=== PATIENT | female | born 1935 | race Caucasian/White ===

== ENCOUNTER 2021-12-20 15:08 | Emergency (ER) | payer MEDICARE, OTHER ==
[~2021-12-20] VITALS: Ht 149.9 cm; Wt 44.6 kg
[2021-12-20 16:05] LABS: URINE WBC 0 /hpf (0-3)
[2021-12-20 16:08] LABS: BASO # 0.06 K/mm3 (0.02-0.10); EOS # 0.11 K/mm3 (0.04-0.40); EOS % 1.1 % (1.0-5.0); HEMATOCRIT 41.5 % (37.0-47.0); HEMOGLOBIN 13.4 g/dL (12.5-16.0); LYMPH# 2.22 K/mm3 (1.50-4.00); MEAN CELL VOLUME 102 fl (78-100); MEAN CORPUSCULAR HEMOGLOBIN 33 pg (27-31); MEAN CORPUSCULAR HGB CONC 32 g/dL (33-37); MEAN PLATELET VOLUME 8.9 fl (7.4-10.4); MONO # 0.96 K/mm3 (0.20-0.80); NEU # 6.63 K/mm3 (1.40-6.50); PLATELET COUNT 252 K/mm3 (130-400); RED BLOOD COUNT 4.09 M/mm3 (4.10-5.30); RED CELL DISTRIBUTION WIDTH 12.8 % (11.5-14.5); WHITE BLOOD COUNT 10.1 K/mm3 (4.8-10.8)
[2021-12-20 16:19] LABS: PH-URINE 7.5 (5.0 - 8.0); URINE APPEARANCE CLEAR; URINE BILIRUBIN NEGATIVE (NEGATIVE); URINE BLOOD TRACE (NEGATIVE); URINE COLOR YELLOW; URINE GLUCOSE NEGATIVE (NEGATIVE); URINE KETONE NEGATIVE (NEGATIVE); URINE LEUKOCYTE ESTERASE NEGATIVE (NEGATIVE); URINE NITRATE NEGATIVE (NEGATIVE); URINE PROTEIN(semi-quant) 1+ (NEGATIVE); URINE UROBILINOGEN NORMAL (NORMAL)
[2021-12-20 16:19] LABS: ALBUMIN 4.3 g/dL (3.4-4.8)
[2021-12-20 16:20] LABS: POTASSIUM 3.3 mmol/L (3.5-5.1)
[2021-12-20 16:21] LABS: CALCIUM 9.8 mg/dL (8.3-10.5)
[2021-12-20 16:22] LABS: TOTAL PROTEIN 7.6 g/dL (6.2-8.1)
[2021-12-20 16:24] LABS: TOTAL BILIRUBIN 0.2 mg/dL (0.2-1.2)
[2021-12-20] MEDS ORDERED: ACETAMINOPHEN500 M7 PO (16:36)
[2021-12-20] MEDS ORDERED: ARICEPT5 M1 PO (16:37)
[2021-12-20] MEDS ORDERED: CALTRATE 600 +1 TAB PO (16:37)
[2021-12-20] MEDS ORDERED: ZESTRIL10 M1 PO (16:37)
[2021-12-20] MEDS ORDERED: REFRESH CELLUVI1 SOL OU (16:39)
[2021-12-20] MEDS ORDERED: ACETAMINOPHEN500 M5 PO (16:41)
[2021-12-20 17:56] VITALS: BP 164/78
== END 2021-12-20 17:55 | disposition home or self-care (01) ==
LOC: ED 15:08
PROVIDERS: Nurse Practitioner Family
DX: R10.84 Generalized abdominal pain (principal)

== ENCOUNTER → 2022-01-01 | Outpatient (CLI) | payer MEDICARE, OTHER ==
[~2022-01-01] MED LIST: ACETAMINOPHEN500 M5 PO; ACETAMINOPHEN500 M7 PO; ARICEPT5 M1 PO; CALTRATE 600 +1 TAB PO; REFRESH CELLUVI1 SOL OU; ZESTRIL10 M1 PO
[2022-01-01 11:59] LABS: BASO # 0.07 K/mm3 (0.02-0.10); EOS # 0.07 K/mm3 (0.04-0.40); EOS % 0.6 % (1.0-5.0); HEMATOCRIT 39.5 % (37.0-47.0); HEMOGLOBIN 12.7 g/dL (12.5-16.0); LYMPH# 1.92 K/mm3 (1.50-4.00); MEAN CELL VOLUME 102 fl (78-100); MEAN CORPUSCULAR HEMOGLOBIN 33 pg (27-31); MEAN CORPUSCULAR HGB CONC 32 g/dL (33-37); MEAN PLATELET VOLUME 8.9 fl (7.4-10.4); MONO # 0.88 K/mm3 (0.20-0.80); NEU # 8.25 K/mm3 (1.40-6.50); PLATELET COUNT 257 K/mm3 (130-400); RED BLOOD COUNT 3.88 M/mm3 (4.10-5.30); WHITE BLOOD COUNT 11.2 K/mm3 (4.8-10.8)
[2022-01-01 12:08] LABS: ALBUMIN 4.3 g/dL (3.4-4.8)
[2022-01-01 12:09] LABS: CALCIUM 9.8 mg/dL (8.3-10.5)
[2022-01-01 12:11] LABS: TOTAL PROTEIN 7.4 g/dL (6.2-8.1)
[2022-01-01 12:12] LABS: TOTAL BILIRUBIN 0.4 mg/dL (0.2-1.2)
== END ==
LOC: LAB 11:34
PROVIDERS: Physician Assistant
DX: Z00.00 Encounter for general adult medical examination without abnormal findings (principal); M81.0 Age-related osteoporosis without current pathological fracture; G30.9 Alzheimer's disease, unspecified; I10 Essential (primary) hypertension; E11.9 Type 2 diabetes mellitus without complications; K90.9 Intestinal malabsorption, unspecified; Z13.220 Encounter for screening for lipoid disorders; Z13.29 Encounter for screening for other suspected endocrine disorder

== ENCOUNTER 2023-01-26 10:23 | Emergency (ER) | payer MEDICARE, OTHER ==
[~2023-01-26] VITALS: Ht 152.4 cm; Wt 46.4 kg
[~2023-01-26 10:23] MED LIST changes: +DICLOFENAC SOD100 GM TP; +FAMOTIDINE20 MG PO
[2023-01-26 11:33] LABS: URINE APPEARANCE CLEAR; URINE BILIRUBIN NEGATIVE (NEGATIVE); URINE BLOOD TRACE (NEGATIVE); URINE COLOR LT YELLOW; URINE GLUCOSE NEGATIVE (NEGATIVE); URINE KETONE NEGATIVE (NEGATIVE); URINE LEUKOCYTE ESTERASE NEGATIVE (NEGATIVE); URINE NITRATE NEGATIVE (NEGATIVE); URINE PROTEIN(semi-quant) NEGATIVE (NEGATIVE); URINE UROBILINOGEN NORMAL (NORMAL); URINE WBC 0-1 /hpf (0-3)
[2023-01-26] MEDS ORDERED: LISINOPRIL40 MG PO (12:22)
[2023-01-26] MEDS ORDERED: LIDODERM1 EACH TP (15:32)
[2023-01-26 16:10] VITALS: BP 119/102
== END 2023-01-26 16:10 | disposition home or self-care (01) ==
LOC: ED 10:23
PROVIDERS: Physician Assistant
DX: M54.50 Low back pain, unspecified (principal); I10 Essential (primary) hypertension; M25.551 Pain in right hip; M48.54XA Collapsed vertebra, not elsewhere classified, thoracic region, initial encounter for fracture; Z28.310 Unvaccinated for COVID-19
CPT/HCPCS: J3010

== ENCOUNTER → 2024-02-16 | Outpatient (CLI) | payer MEDICARE, OTHER ==
[~2024-02-16] MED LIST changes: +LIDODERM1 EACH TP; +LISINOPRIL40 MG PO
[2024-02-16 15:07] LABS: BASO # 0.04 K/mm3 (0.02-0.10); EOS # 0.12 K/mm3 (0.04-0.40); EOS % 1.2 % (1.0-5.0); HEMATOCRIT 37.2 % (37.0-47.0); LYMPH# 1.96 K/mm3 (1.50-4.00); MEAN CELL VOLUME 100 fl (78-100); MEAN CORPUSCULAR HEMOGLOBIN 32 pg (27-31); MEAN CORPUSCULAR HGB CONC 32 g/dL (33-37); MEAN PLATELET VOLUME 8.8 fl (7.4-10.4); MONO # 0.83 K/mm3 (0.20-0.80); NEU # 7.06 K/mm3 (1.40-6.50); PLATELET COUNT 258 K/mm3 (130-400); RED BLOOD COUNT 3.74 M/mm3 (4.10-5.30); WHITE BLOOD COUNT 10.1 K/mm3 (4.8-10.8)
[2024-02-16 15:13] LABS: ALBUMIN 4.1 g/dL (3.4-4.8)
[2024-02-16 15:14] LABS: CALCIUM 9.4 mg/dL (8.3-10.5)
[2024-02-16 15:15] LABS: TOTAL PROTEIN 6.9 g/dL (6.2-8.1)
[2024-02-16 15:17] LABS: TOTAL BILIRUBIN 0.3 mg/dL (0.2-1.2)
== END ==
LOC: LAB 14:51
PROVIDERS: Physician Assistant
DX: I10 Essential (primary) hypertension (principal); K90.9 Intestinal malabsorption, unspecified; E78.5 Hyperlipidemia, unspecified; Z86.39 Personal history of other endocrine, nutritional and metabolic disease